=== PATIENT | male | born 1960 | race African-American/Black ===

== ENCOUNTER 2017-06-20 22:57 | Inpatient (IN) | payer MEDICAID, OTHER ==
[~2017-06-20] VITALS: Ht 162.6 cm; Wt 79.4 kg
[2017-06-20 23:47] LABS: HEMATOCRIT. 29.5 % (42.0-52.0); HEMOGLOBIN. 9.5 g/dL (14.0-18.0); MEAN CORPUSCULAR HEMOGLOBIN 24.4 pg (28.0-32.0); MEAN CORPUSCULAR VOLUME 75.5 fL (80.0-94.0); MEAN PLATELET VOLUME 7.7 fl (7.4-10.4); PLATELET 507 x1000/uL (130-400); RED BLOOD CELL COUNT 3.91 mill/uL (4.7-6.1); RED CELL DISTRIBUTION WIDTH 16.3 % (11.6-14.6)
[2017-06-20 23:48] LABS: INR 1.2; PROTHROMBIN TIME 12.1 sec (9.4-11.6)
[2017-06-20 23:56] LABS: CARBON DIOXIDE 26 mEq/L (21-32); CHLORIDE 93 mEq/L (98-107); TROPONIN I < 0.02 ng/mL (0.00-0.04)
[2017-06-21] VITALS (7 sets, daily range): BP systolic 132–173; BP diastolic 85–115
[2017-06-21] MEDS ORDERED: NITROGLYCERIN 0.4MG TABLET SL SL ONE
[2017-06-21] MEDS ORDERED: FUROSEMIDE 40MG/4ML VIAL IVP ONE
[2017-06-21] MEDS ORDERED: ASPIRIN 81MG TABLET PO ONE
[2017-06-21] MEDS ORDERED: CEFTRIAXONE 1 G PREMIX 50 ML IV ONE (01:15)
[2017-06-21] MEDS ORDERED: IBUPROFEN 600MG TABLET PO PRN (01:15)
[2017-06-21] MEDS ORDERED: ACETAMINOPHEN 325MG TABLET PO PRN ×2 (01:15→16:00)
[2017-06-21] MEDS ORDERED: AZITHROMYCIN 500 MG in DEXT 5% WATER 250 ML IV SCH (01:15)
[2017-06-21] MEDS ORDERED: CLONIDINE 0.1MG TABLET PO PRN ×2 (04:45→16:00)
[2017-06-21] MEDS: FUROSEMIDE 40MG/4ML VIAL IVP SCH ×2 (08:27→21:15)
[2017-06-21 08:57] LABS: HEMATOCRIT. 29.5 % (42.0-52.0); HEMOGLOBIN. 9.5 g/dL (14.0-18.0); MEAN CORPUSCULAR HEMOGLOBIN 24.4 pg (28.0-32.0); MEAN CORPUSCULAR VOLUME 75.5 fL (80.0-94.0); MEAN PLATELET VOLUME 7.8 fl (7.4-10.4); PLATELET 516 x1000/uL (130-400); RED BLOOD CELL COUNT 3.91 mill/uL (4.7-6.1); RED CELL DISTRIBUTION WIDTH 16.4 % (11.6-14.6)
[2017-06-21 09:16] LABS: CARBON DIOXIDE 30 mEq/L (21-32); CHLORIDE 93 mEq/L (98-107); TROPONIN I < 0.02 ng/mL (0.00-0.04)
[2017-06-21 10:09] LABS: PLATELET ESTIMATE INCREASED
[2017-06-21] MEDS: POTASSIUM CHLORIDE 20MEQ/PACKET PO SCH (12:20)
[2017-06-21] MEDS ORDERED: DIPHENHYDRAMINE 50MG/ML VIAL IV PRN (16:00)
[2017-06-21] MEDS ORDERED: MAGNESIUM/ALUMINUM HYDROXIDE/SIMETHICONE 30ML UDC PO PRN (16:00)
[2017-06-21] MEDS ORDERED: IPRATROPIUM/ALBUTEROL 0.5-3(2.5)MG/3ML NEB INH PRN (16:00)
[2017-06-21] MEDS ORDERED: ONDANSETRON HCL 4MG/2ML VIAL IV PRN (16:00)
[2017-06-21] MEDS ORDERED: NA PHOS,M-B/NA PHOS,DI-BA ENEMA 118ML PR PRN (16:00)
[2017-06-21] MEDS ORDERED: ACETAMINOPHEN 650MG/20.3ML UDC GT PRN (16:00)
[2017-06-21] MEDS ORDERED: ACETAMINOPHEN 650MG SUPP PR PRN (16:00)
[2017-06-21] MEDS ORDERED: DOCUSATE SODIUM 100MG CAPSULE PO PRN (17:00)
[2017-06-21 17:02] LABS: PLATELET ESTIMATE INCREASED
[2017-06-21 18:54] LABS: CLARITY URINE CLEAR (CLEAR); COLOR URINE YELLOW (YELLOW); GLUCOSE URINE NEGATIVE (NEGATIVE); KETONES URINE NEGATIVE (NEGATIVE); LEUKOCYTE ESTERASE URINE NEGATIVE (NEGATIVE); NITRITE URINE NEGATIVE (NEGATIVE); OCCULT BLOOD URINE NEGATIVE (NEGATIVE); PH URINE 6.5 (4.5-8.0); PROTEIN URINE NEGATIVE (NEGATIVE); SPECIFIC GRAVITY URINE 1.012 (1.005-1.030)
[2017-06-21 19:03] LABS: *AMPHETAMINES SCREEN URINE NEGATIVE (NEGATIVE); *BARBITURATES SCREEN URINE NEGATIVE (NEGATIVE); *BENZODIAZEPINES SCREEN URINE NEGATIVE (NEGATIVE); *COCAINE SCREEN URINE NEGATIVE (NEGATIVE); CANNABINOID URINE SCREEN NEGATIVE (NEGATIVE); METHADONE URINE SCREEN NEGATIVE (NEGATIVE); OPIATES URINE SCREEN NEGATIVE (NEGATIVE); PHENCYCLIDINE URINE SCREEN NEGATIVE (NEGATIVE)
[2017-06-21] MEDS: IPRATROPIUM/ALBUTEROL 0.5-3(2.5)MG/3ML NEB INH SCH (20:49)
[2017-06-21] MEDS: GUAIFENESIN 200MG/10ML SUGAR FREE UDC PO PRN (21:18)
[2017-06-21] MEDS: SODIUM CHLORIDE 0.9% INJ 3ML FLUSH IVF SCH (22:00)
[2017-06-22] VITALS (7 sets, daily range): BP systolic 128–151; BP diastolic 68–101
[2017-06-22] MEDS: IPRATROPIUM/ALBUTEROL 0.5-3(2.5)MG/3ML NEB INH SCH ×4 (01:03→20:09)
[2017-06-22 05:53] LABS: HEMATOCRIT. 29.8 % (42.0-52.0); HEMOGLOBIN. 9.6 g/dL (14.0-18.0); MEAN CORPUSCULAR HEMOGLOBIN 24.3 pg (28.0-32.0); MEAN CORPUSCULAR VOLUME 75.5 fL (80.0-94.0); MEAN PLATELET VOLUME 7.7 fl (7.4-10.4); PLATELET 513 x1000/uL (130-400); RED BLOOD CELL COUNT 3.95 mill/uL (4.7-6.1); RED CELL DISTRIBUTION WIDTH 16.4 % (11.6-14.6)
[2017-06-22 07:24] LABS: CARBON DIOXIDE 31 mEq/L (21-32); CHLORIDE 92 mEq/L (98-107); HDL CHOLESTEROL 34 mg/dL (40-59); LDL CHOLESTEROL 34 mg/dL (5-100)
[2017-06-22] MEDS: POTASSIUM CHLORIDE 20MEQ/PACKET PO SCH (08:30)
[2017-06-22] MEDS: FUROSEMIDE 40MG/4ML VIAL IVP SCH ×2 (08:31→21:50)
[2017-06-22] MEDS: SODIUM CHLORIDE 0.9% INJ 3ML FLUSH IVF SCH ×3 (08:31→21:51)
[2017-06-22] MEDS: LOSARTAN POTASSIUM 50 MG TABLET PO SCH (11:24)
[2017-06-22 11:38] LABS: T4 FREE 1.43 ng/dL (0.76-1.46)
[2017-06-22] MEDS ORDERED: POTASSIUM CHLORIDE 20MEQ/PACKET PO NR (12:00)
[2017-06-22] MEDS ORDERED: POTASSIUM CHLORIDE 20MEQ/PACKET PO SCH (12:00)
[2017-06-22] MEDS: GUAIFENESIN 200MG/10ML SUGAR FREE UDC PO PRN ×2 (14:12→21:51)
[2017-06-22 16:20] LABS: CREATINE KINASE 113 IU/L (39-308); CREATINE KINASE MB FRACTION 1.8 ng/mL (0.5-3.6); TROPONIN I < 0.02 ng/mL (0.00-0.04)
[2017-06-22 19:31] LABS: PLATELET ESTIMATE INCREASED
[2017-06-22] MEDS: CARVEDILOL 3.125 MG TABLET PO SCH (21:50)
[2017-06-22 23:36] LABS: CREATINE KINASE 108 IU/L (39-308); CREATINE KINASE MB FRACTION 1.8 ng/mL (0.5-3.6); TROPONIN I < 0.02 ng/mL (0.00-0.04)
[2017-06-23] VITALS (7 sets, daily range): BP systolic 124–157; BP diastolic 77–99
[2017-06-23] MEDS: IPRATROPIUM/ALBUTEROL 0.5-3(2.5)MG/3ML NEB INH SCH ×4 (00:32→19:48)
[2017-06-23] MEDS: SODIUM CHLORIDE 0.9% INJ 3ML FLUSH IVF SCH ×2 (06:00→16:39)
[2017-06-23] MEDS: CARVEDILOL 3.125 MG TABLET PO SCH (07:43)
[2017-06-23 08:08] LABS: CREATINE KINASE 85 IU/L (39-308); CREATINE KINASE MB FRACTION 1.2 ng/mL (0.5-3.6); TROPONIN I < 0.02 ng/mL (0.00-0.04)
[2017-06-23] MEDS ORDERED: LOSA50TA3 PO (08:18)
[2017-06-23] MEDS ORDERED: FURO-151 PO (08:18)
[2017-06-23] MEDS ORDERED: COR3 PO (08:18)
[2017-06-23] MEDS: POTASSIUM CHLORIDE 20MEQ/PACKET PO SCH (08:21)
[2017-06-23] MEDS: LOSARTAN POTASSIUM 50 MG TABLET PO SCH (08:22)
[2017-06-23] MEDS: FUROSEMIDE 40MG/4ML VIAL IVP SCH (08:22)
[2017-06-23 09:32] LABS: HEMATOCRIT. 30.4 % (42.0-52.0); HEMOGLOBIN. 9.7 g/dL (14.0-18.0); MEAN CORPUSCULAR HEMOGLOBIN 24.5 pg (28.0-32.0); MEAN CORPUSCULAR VOLUME 76.6 fL (80.0-94.0); MEAN PLATELET VOLUME 7.9 fl (7.4-10.4); PLATELET 572 x1000/uL (130-400); RED BLOOD CELL COUNT 3.96 mill/uL (4.7-6.1); RED CELL DISTRIBUTION WIDTH 16.3 % (11.6-14.6)
[2017-06-23 09:52] LABS: CARBON DIOXIDE 33 mEq/L (21-32); CHLORIDE 93 mEq/L (98-107)
[2017-06-23] MEDS ORDERED: REGADENOSON 0.4 MG/5 ML IV NR (13:30)
[2017-06-23 13:40] LABS: PLATELET ESTIMATE INCREASED
== END 2017-06-23 22:30 | disposition home or self-care (01) | DRG 133 ==
LOC: ER 22:57 → 6WST 06-21 01:04 → ENRESERV 06-21 01:16 → 6WST 06-21 05:00
PROVIDERS: ADMIT Family Medicine; ATTEND Family Medicine
DX: J96.00 Acute respiratory failure, unspecified whether with hypoxia or hypercapnia (principal); J81.0 Acute pulmonary edema; I50.43 Acute on chronic combined systolic (congestive) and diastolic (congestive) heart failure; E43 Unspecified severe protein-calorie malnutrition; I11.0 Hypertensive heart disease with heart failure; I42.9 Cardiomyopathy, unspecified; E87.1 Hypo-osmolality and hyponatremia; D63.8 Anemia in other chronic diseases classified elsewhere; E11.65 Type 2 diabetes mellitus with hyperglycemia; E66.9 Obesity, unspecified; I00 Rheumatic fever without heart involvement; F17.200 Nicotine dependence, unspecified, uncomplicated; E78.5 Hyperlipidemia, unspecified; F14.90 Cocaine use, unspecified, uncomplicated; Z59.0 Homelessness; Z85.038 Personal history of other malignant neoplasm of large intestine; Z68.30 Body mass index [BMI] 30.0-30.9, adult; Z87.01 Personal history of pneumonia (recurrent); Z93.3 Colostomy status
CPT/HCPCS: 36415; 71010; 80048; 80053; 80061; 80305; 81003; 82550; 82553; 83036; 83605; 83880; 84439; 84443; 84484; 85025; 85379; 85610; 87040; 93005; 93306; 93970; 94640; 94664; 96365; 96367; 96375; 99291; J0456; J0696; J1940; J2405; J7060; J7620

== ENCOUNTER 2018-04-24 22:18 | Inpatient (IN) | payer MEDICAID ==
[~2018-04-24] VITALS: Ht 180.3 cm; Wt 74.1 kg
[~2018-04-24 22:18] MED LIST: COR3 PO; FURO-151 PO; LOSA50TA3 PO
[2018-04-24 23:32] LABS: HEMATOCRIT. 35.8 % (42.0-52.0); HEMOGLOBIN. 11.7 g/dL (14.0-18.0); MEAN CORPUSCULAR HEMOGLOBIN 29.1 pg (28.0-32.0); MEAN CORPUSCULAR VOLUME 88.8 fL (80.0-94.0); MEAN PLATELET VOLUME 7.3 fl (7.4-10.4); PLATELET 375 x1000/uL (130-400); RED BLOOD CELL COUNT 4.03 mill/uL (4.7-6.1); RED CELL DISTRIBUTION WIDTH 14.2 % (11.6-14.6)
[2018-04-24 23:36] LABS: CHLORIDE 103 mEq/L (98-107)
[2018-04-25] VITALS (9 sets, daily range): BP systolic 142–179; BP diastolic 102–129
[2018-04-25] MEDS ORDERED: NITROGLYCERIN OINT 1GM/INCH UDPKT TD ONE (00:45)
[2018-04-25] MEDS ORDERED: FUROSEMIDE 40MG/4ML VIAL IV ONE (00:45)
[2018-04-25 01:20] LABS: PLATELET ESTIMATE NORMAL
[2018-04-25] MEDS ORDERED: IOHEXOL-350 100 ML BOTTLE ONE (02:54)
[2018-04-25] MEDS ORDERED: CLONIDINE 0.1MG TABLET PO PRN ×3 (04:30→18:45)
[2018-04-25] MEDS: FUROSEMIDE 40MG/4ML VIAL IVP SCH (09:00)
[2018-04-25] MEDS: AMLODIPINE 10MG TABLET PO SCH (09:44)
[2018-04-25] MEDS ORDERED: CLONIDINE 0.2MG TABLET PO PRN (10:45)
[2018-04-25] MEDS ORDERED: PNEUMOCOCCAL 23-VAL P-SAC VAC 0.5 ML IM ONE (12:00)
[2018-04-25] MEDS: LOSARTAN POTASSIUM 25 MG TABLET PO SCH ×2 (15:25→21:04)
[2018-04-25] MEDS: ASPIRIN 81MG EC TABLET PO SCH (15:25)
[2018-04-25] MEDS ORDERED: DIPHENHYDRAMINE 50MG/ML VIAL IV PRN (18:45)
[2018-04-25] MEDS ORDERED: ACETAMINOPHEN 650MG SUPP PR PRN (18:45)
[2018-04-25] MEDS ORDERED: IPRATROPIUM/ALBUTEROL 0.5-3(2.5)MG/3ML NEB INH PRN (18:45)
[2018-04-25] MEDS ORDERED: ACETAMINOPHEN 325MG TABLET PO PRN (18:45)
[2018-04-25] MEDS ORDERED: MAGNESIUM/ALUMINUM HYDROXIDE/SIMETHICONE 30ML UDC PO PRN (18:45)
[2018-04-25] MEDS ORDERED: GUAIFENESIN 200MG/10ML SUGAR FREE UDC PO PRN (18:45)
[2018-04-25] MEDS ORDERED: ACETAMINOPHEN 650MG/20.3ML UDC GT PRN (18:45)
[2018-04-25] MEDS ORDERED: DOCUSATE SODIUM 100MG CAPSULE PO PRN (18:45)
[2018-04-25] MEDS ORDERED: NA PHOS,M-B/NA PHOS,DI-BA ENEMA 118ML PR PRN (19:00)
[2018-04-25] MEDS ORDERED: ONDANSETRON 4MG ODT PO PRN (19:00)
[2018-04-25 20:31] LABS: CHLORIDE 102 mEq/L (98-107); HEMOGLOBIN. 11.6 g/dL (14.0-18.0); MEAN CORPUSCULAR HEMOGLOBIN 28.6 pg (28.0-32.0); MEAN CORPUSCULAR VOLUME 88.8 fL (80.0-94.0); MEAN PLATELET VOLUME 7.6 fl (7.4-10.4); PLATELET 369 x1000/uL (130-400); RED BLOOD CELL COUNT 4.06 mill/uL (4.7-6.1); RED CELL DISTRIBUTION WIDTH 14.3 % (11.6-14.6)
[2018-04-25 20:39] LABS: LDL CHOLESTEROL 49 mg/dL (5-100)
[2018-04-25 20:40] LABS: HDL CHOLESTEROL 38 mg/dL (40-59)
[2018-04-25] MEDS: ENOXAPARIN 40MG/0.4ML SYR SUBCUT SCH (21:05)
[2018-04-25] MEDS: SODIUM CHLORIDE 0.9% INJ 3ML FLUSH IVF SCH (21:08)
[2018-04-25 21:34] LABS: PLATELET ESTIMATE NORMAL
[2018-04-25 23:10] LABS: CLARITY URINE CLEAR (CLEAR); COLOR URINE YELLOW (YELLOW); KETONES URINE NEGATIVE (NEGATIVE); LEUKOCYTE ESTERASE URINE NEGATIVE (NEGATIVE); NITRITE URINE NEGATIVE (NEGATIVE); OCCULT BLOOD URINE NEGATIVE (NEGATIVE); PROTEIN URINE NEGATIVE (NEGATIVE); SPECIFIC GRAVITY URINE 1.007 (1.005-1.030)
[2018-04-25 23:20] LABS: *AMPHETAMINES SCREEN URINE NEGATIVE (NEGATIVE); *BARBITURATES SCREEN URINE NEGATIVE (NEGATIVE)
[2018-04-25 23:21] LABS: *BENZODIAZEPINES SCREEN URINE NEGATIVE (NEGATIVE); *COCAINE SCREEN URINE NEGATIVE (NEGATIVE); METHADONE URINE SCREEN NEGATIVE (NEGATIVE); OPIATES URINE SCREEN NEGATIVE (NEGATIVE); PHENCYCLIDINE URINE SCREEN NEGATIVE (NEGATIVE)
[2018-04-25 23:22] LABS: CANNABINOID URINE SCREEN NEGATIVE (NEGATIVE)
[2018-04-26] VITALS: BP 156/106
[2018-04-26 04:00] VITALS: BP 151/105
[2018-04-26] MEDS: SODIUM CHLORIDE 0.9% INJ 3ML FLUSH IVF SCH ×3 (06:02→21:05)
[2018-04-26 06:26] LABS: HEMATOCRIT. 36.6 % (42.0-52.0); HEMOGLOBIN. 11.8 g/dL (14.0-18.0); MEAN CORPUSCULAR HEMOGLOBIN 28.6 pg (28.0-32.0); MEAN CORPUSCULAR VOLUME 88.1 fL (80.0-94.0); MEAN PLATELET VOLUME 7.7 fl (7.4-10.4); PLATELET 345 x1000/uL (130-400); RED BLOOD CELL COUNT 4.15 mill/uL (4.7-6.1); RED CELL DISTRIBUTION WIDTH 14.4 % (11.6-14.6)
[2018-04-26 06:51] LABS: CHLORIDE 100 mEq/L (98-107)
[2018-04-26 07:03] LABS: CREATINE KINASE 141 IU/L (39-308)
[2018-04-26 07:06] LABS: LDL CHOLESTEROL 50 mg/dL (5-100)
[2018-04-26 07:07] LABS: HDL CHOLESTEROL 37 mg/dL (40-59)
[2018-04-26 07:17] LABS: CREATINE KINASE MB FRACTION 1.9 ng/mL (0.5-3.6)
[2018-04-26 08:00] VITALS: BP 150/98
[2018-04-26] MEDS: ASPIRIN 81MG EC TABLET PO SCH (08:48)
[2018-04-26] MEDS: AMLODIPINE 10MG TABLET PO SCH (08:48)
[2018-04-26] MEDS: FUROSEMIDE 40MG/4ML VIAL IVP SCH (08:49)
[2018-04-26] MEDS: LOSARTAN POTASSIUM 25 MG TABLET PO SCH (08:50)
[2018-04-26 10:43] LABS: PLATELET ESTIMATE NORMAL
[2018-04-26] MEDS ORDERED: AMLO10TA80 PO (12:10)
[2018-04-26] MEDS ORDERED: ASPI-1158 PO (12:10)
[2018-04-26 12:30] VITALS: BP 158/102
[2018-04-26] MEDS: HYDRALAZINE HCL 25MG TABLET PO SCH ×2 (14:07→21:03)
[2018-04-26 16:14] VITALS: BP 144/96
[2018-04-26 20:00] VITALS: BP 146/103
[2018-04-26] MEDS: ENOXAPARIN 40MG/0.4ML SYR SUBCUT SCH (20:00)
[2018-04-26] MEDS: LOSARTAN POTASSIUM 50 MG TABLET PO SCH (21:03)
[2018-04-27] VITALS: BP 154/100
[2018-04-27 04:00] VITALS: BP 160/119
[2018-04-27] MEDS: HYDRALAZINE HCL 25MG TABLET PO SCH (06:13)
[2018-04-27] MEDS: SODIUM CHLORIDE 0.9% INJ 3ML FLUSH IVF SCH (06:14)
[2018-04-27 07:50] LABS: CHLORIDE 102 mEq/L (98-107)
[2018-04-27 08:00] VITALS: BP 148/98
[2018-04-27 08:02] LABS: HEMATOCRIT. 37.9 % (42.0-52.0); HEMOGLOBIN. 12.4 g/dL (14.0-18.0); MEAN CORPUSCULAR HEMOGLOBIN 28.9 pg (28.0-32.0); MEAN CORPUSCULAR VOLUME 88.7 fL (80.0-94.0); MEAN PLATELET VOLUME 7.8 fl (7.4-10.4); PLATELET 381 x1000/uL (130-400); RED BLOOD CELL COUNT 4.27 mill/uL (4.7-6.1); RED CELL DISTRIBUTION WIDTH 14.1 % (11.6-14.6)
[2018-04-27] MEDS: FUROSEMIDE 40MG/4ML VIAL IVP SCH (08:47)
[2018-04-27] MEDS: AMLODIPINE 10MG TABLET PO SCH (08:48)
[2018-04-27] MEDS: ASPIRIN 81MG EC TABLET PO SCH (08:48)
[2018-04-27] MEDS: LOSARTAN POTASSIUM 50 MG TABLET PO SCH (09:00)
[2018-04-27] MEDS ORDERED: CLONIDINE 0.1MG TABLET PO SCH (11:30)
[2018-04-27 12:00] VITALS: BP 138/89
[2018-04-27 12:35] VITALS: BP 146/92
[2018-04-27] MEDS ORDERED: HYDRALAZINE HCL 100MG TABLET PO SCH (14:00)
[2018-04-27 16:38] LABS: PLATELET ESTIMATE NORMAL
== END 2018-04-27 14:20 | disposition home or self-care (01) | DRG 194 ==
LOC: ER 22:26 → 6WST 04-25 01:28 → EDBEDREQTM 04-25 01:29 → EDBEDREQ 04-25 01:29 → ENRESERV 04-25 01:49
PROVIDERS: ADMIT Family Medicine; ATTEND Family Medicine
DX: I11.0 Hypertensive heart disease with heart failure (principal); J96.90 Respiratory failure, unspecified, unspecified whether with hypoxia or hypercapnia; E43 Unspecified severe protein-calorie malnutrition; J44.1 Chronic obstructive pulmonary disease with (acute) exacerbation; E11.9 Type 2 diabetes mellitus without complications; I42.0 Dilated cardiomyopathy; D63.8 Anemia in other chronic diseases classified elsewhere; I00 Rheumatic fever without heart involvement; I50.43 Acute on chronic combined systolic (congestive) and diastolic (congestive) heart failure; E78.00 Pure hypercholesterolemia, unspecified; E78.5 Hyperlipidemia, unspecified; Z59.0 Homelessness; Z79.899 Other long term (current) drug therapy
CPT/HCPCS: 36415; 71045; 71275; 80048; 80053; 80061; 80305; 81003; 82550; 82553; 83036; 83735; 83880; 84443; 84484; 85025; 85379; 90732; 93005; 93306; 93970; 99285; J1650; J1940; Q9967

== ENCOUNTER 2018-10-20 14:18 | Emergency (ER) | payer MEDICAID ==
[~2018-10-20] VITALS: Ht 180.3 cm; Wt 75.0 kg
[~2018-10-20 14:18] MED LIST changes: +AMLO10TA80 PO; +ASPI-1158 PO
[2018-10-20] MEDS ORDERED: AMLODIPINE 10MG TABLET PO ONE (23:00)
[2018-10-20] MEDS ORDERED: FUROSEMIDE 40MG TABLET PO ONE (23:00)
[2018-10-20] MEDS ORDERED: CARVEDILOL 3.125 MG TABLET PO ONE (23:00)
[2018-10-20] MEDS: LOSARTAN POTASSIUM 50 MG TABLET PO SCH (23:04)
[2018-10-21 00:06] LABS: EOSINOPHILS % 2.8 % (0.0-5.0); HEMATOCRIT. 35.6 % (42.0-52.0); HEMOGLOBIN. 11.6 g/dL (14.0-18.0); LYMPHOCYTES % 29.9 % (20.0-50.0); MEAN CORPUSCULAR HEMOGLOBIN 29.1 pg (28.0-32.0); MEAN CORPUSCULAR VOLUME 89.3 fL (80.0-94.0); MONOCYTES % 11.4 % (2.0-8.0); NEUTROPHILS % 54.9 % (40.0-76.0); PLATELET 286 x1000/uL (130-400); RED BLOOD CELL COUNT 3.99 mill/uL (4.7-6.1); RED CELL DISTRIBUTION WIDTH 13.8 % (11.6-14.6)
[2018-10-21 00:11] LABS: CHLORIDE 104 mEq/L (98-107)
[2018-10-21 00:20] LABS: ETHANOL BLOOD < 10 mg/dL
[2018-10-21] MEDS: LOSARTAN POTASSIUM 50 MG TABLET PO SCH (09:43)
[2018-10-21 12:06] LABS: *AMPHETAMINES SCREEN URINE NEGATIVE (NEGATIVE); *BARBITURATES SCREEN URINE NEGATIVE (NEGATIVE); *BENZODIAZEPINES SCREEN URINE NEGATIVE (NEGATIVE)
[2018-10-21 12:07] LABS: *COCAINE SCREEN URINE NEGATIVE (NEGATIVE); CANNABINOID URINE SCREEN NEGATIVE (NEGATIVE); METHADONE URINE SCREEN NEGATIVE (NEGATIVE); OPIATES URINE SCREEN NEGATIVE (NEGATIVE); PHENCYCLIDINE URINE SCREEN NEGATIVE (NEGATIVE)
[2018-10-21 13:03] VITALS: BP 150/93
== END 2018-10-21 13:09 | disposition home or self-care (01) ==
LOC: ER 14:18
DX: I11.0 Hypertensive heart disease with heart failure (principal); I50.9 Heart failure, unspecified; J44.9 Chronic obstructive pulmonary disease, unspecified; Z59.0 Homelessness; Z91.14 Patient's other noncompliance with medication regimen; Z79.82 Long term (current) use of aspirin
CPT/HCPCS: 36415; 80053; 80305; 83880; 85025; 99284; G0482

== ENCOUNTER 2019-02-13 12:38 | Emergency (ER) | payer MEDICAID ==
[~2019-02-13] VITALS: Ht 177.8 cm; Wt 75.0 kg
[2019-02-13 16:16] LABS: *AMPHETAMINES SCREEN URINE NEGATIVE (NEGATIVE); *BARBITURATES SCREEN URINE NEGATIVE (NEGATIVE); *BENZODIAZEPINES SCREEN URINE NEGATIVE (NEGATIVE); *COCAINE SCREEN URINE NEGATIVE (NEGATIVE); METHADONE URINE SCREEN NEGATIVE (NEGATIVE); OPIATES URINE SCREEN NEGATIVE (NEGATIVE)
[2019-02-13 16:17] LABS: CANNABINOID URINE SCREEN NEGATIVE (NEGATIVE); PHENCYCLIDINE URINE SCREEN NEGATIVE (NEGATIVE)
[2019-02-13 16:19] LABS: HEMATOCRIT. 37.9 % (42.0-52.0); HEMOGLOBIN. 12.4 g/dL (14.0-18.0); MEAN CORPUSCULAR HEMOGLOBIN 29.5 pg (28.0-32.0); MEAN CORPUSCULAR VOLUME 90.4 fL (80.0-94.0); MEAN PLATELET VOLUME 8.2 fl (7.4-10.4); PLATELET 244 x1000/uL (130-400); RED BLOOD CELL COUNT 4.19 mill/uL (4.7-6.1); RED CELL DISTRIBUTION WIDTH 13.2 % (11.6-14.6)
[2019-02-13 16:25] LABS: CHLORIDE 104 mEq/L (98-107)
[2019-02-13 16:29] LABS: ETHANOL BLOOD < 10 mg/dL
[2019-02-13 17:09] LABS: PLATELET ESTIMATE NORMAL
[2019-02-13 18:10] VITALS: BP 175/82
== END 2019-02-13 18:20 | disposition home or self-care (01) ==
LOC: ER 12:38
DX: F22 Delusional disorders (principal); I11.0 Hypertensive heart disease with heart failure; I50.9 Heart failure, unspecified; J44.9 Chronic obstructive pulmonary disease, unspecified; Z98.890 Other specified postprocedural states; Z79.82 Long term (current) use of aspirin; Z79.899 Other long term (current) drug therapy
CPT/HCPCS: 36415; 80305; 80320; 83605; 99283; G0480

== ENCOUNTER 2023-12-01 11:24 | Inpatient (IN) | payer MEDICAID, OTHER ==
[~2023-12-01] VITALS: Ht 180.3 cm; Wt 79.6 kg
[~2023-12-01 11:24] MED LIST changes: -ASPI-1158 PO; +ASPI-1406 PO; +LOSA-412 PO; -LOSA50TA3 PO
[2023-12-01 12:35] LABS: HEMATOCRIT. 31.2 % (42.0-52.0); HEMOGLOBIN. 9.8 g/dL (14.0-18.0); MEAN CORPUSCULAR HEMOGLOBIN 28.3 pg (28.0-32.0); MEAN CORPUSCULAR HGB CONC 31.5 g/dL (31.0-37.0); MEAN PLATELET VOLUME 7.9 fl (7.4-10.4); PLATELET 241 x1000/uL (130-400); RED BLOOD CELL COUNT 3.47 mill/uL (4.7-6.1); RED CELL DISTRIBUTION WIDTH 18.5 % (11.6-14.6)
[2023-12-01 12:53] LABS: ALANINE AMINOTRANSFERASE 22 IU/L (10-49); ALBUMIN 3.9 g/dL (3.2-4.8); AMMONIA 91 uMol/L (<32); ASPARTATE AMINOTRANSFERASE 45 IU/L (<34); BILIRUBIN TOTAL 2.1 mg/dL (0.1-1.0); CARBON DIOXIDE 23 mEq/L (21-32); CHLORIDE 108 mEq/L (98-107); CREATINE KINASE 77 IU/L (46-171); GLUCOSE 99 mg/dL (70-105); POTASSIUM 4.8 mEq/L (3.5-5.1); PROTEIN TOTAL 8.6 g/dL (6.0-8.3); SODIUM 137 mEq/L (136-145); TROPONIN I HIGH SENSITIVITY 14 ng/L (3.0-53); UREA NITROGEN BLOOD 18 mg/dL (9-23)
[2023-12-01 12:54] LABS: DIFFERENTIAL COMMENT 1
[2023-12-01 13:29] LABS: ETHANOL BLOOD < 10 mg/dL (<10); PLATELET ESTIMATE NORMAL
[2023-12-01] MEDS ORDERED: AMLODIPINE 10MG TABLET PO ONE (14:00)
[2023-12-01] MEDS: AMLODIPINE 5MG TABLET PO NR (14:38)
[2023-12-01] MEDS: LACTULOSE 20G/30ML UDC PO NR (21:54)
[2023-12-01] MEDS ORDERED: ONDANSETRON HCL 4MG/2ML INJ IV PRN (23:15)
[2023-12-01] MEDS ORDERED: CLONIDINE 0.1MG TABLET PO PRN (23:15)
[2023-12-01] MEDS ORDERED: IPRATROPIUM/ALBUTEROL 0.5-3(2.5)MG/3ML NEB HHN PRN (23:15)
[2023-12-01] MEDS ORDERED: MAGNESIUM/ALUMINUM HYDROXIDE/SIMETHICONE 30ML UDC PO PRN (23:15)
[2023-12-01] MEDS ORDERED: ACETAMINOPHEN 325MG TABLET PO PRN (23:15)
[2023-12-02] MEDS: ACETAMINOPHEN 325MG TABLET PO PRN (02:27)
[2023-12-02 04:00] VITALS: BP 157/105; PULSE 66; RESP 20; TEMP 97.1
[2023-12-02] MEDS ORDERED: FAMO20TA8 PO (04:39)
[2023-12-02] MEDS ORDERED: THIA100T88 PO (04:39)
[2023-12-02] MEDS ORDERED: FERR-71 PO (04:39)
[2023-12-02] MEDS ORDERED: LEVE500T19 PO (04:39)
[2023-12-02] MEDS: SODIUM CHLORIDE 0.9% INJ 3ML FLUSH IVF SCH (05:07)
[2023-12-02] MEDS: LACTULOSE 20G/30ML UDC PO SCH (05:07)
[2023-12-02 08:00] VITALS: BP 147/104; PULSE 113; RESP 18; TEMP 97.1
[2023-12-02] MEDS: RIFAXIMIN 550 MG TABLET PO SCH (09:00)
[2023-12-02] MEDS: THIAMINE HCL 100MG TABLET PO SCH (09:49)
[2023-12-02] MEDS: METOPROLOL TARTRATE 50MG TABLET PO SCH (09:49)
[2023-12-02] MEDS: AMIODARONE HCL 200 MG TABLET PO SCH (09:49)
[2023-12-02] MEDS: APIXABAN 5 MG TABLET PO SCH (09:49)
[2023-12-02] MEDS: FUROSEMIDE 20MG TABLET PO SCH (09:49)
[2023-12-02] MEDS: LEVETIRACETAM 500MG TABLET PO SCH (09:49)
[2023-12-02] MEDS: FAMOTIDINE 20MG TABLET PO SCH (09:49)
[2023-12-02 12:00] VITALS: BP 137/102; PULSE 113; RESP 18; TEMP 97.3
[2023-12-02 12:13] LABS: AMMONIA 41 uMol/L (<32)
[2023-12-02 15:25] LABS: CLARITY URINE CLOUDY (CLEAR); COLOR URINE DARK YELLOW (YELLOW); GLUCOSE URINE NEGATIVE (NEGATIVE); KETONES URINE TRACE (NEGATIVE); LEUKOCYTE ESTERASE URINE 1+ (NEGATIVE); NITRITE URINE NEGATIVE (NEGATIVE); OCCULT BLOOD URINE TRACE (NEGATIVE); PROTEIN URINE 2+ (NEGATIVE); SPECIFIC GRAVITY URINE 1.018 (1.005-1.030)
[2023-12-02 15:35] LABS: BACTERIA URINE 2+; RBC URINE 0-2 /hpf (0-2); SQUAMOUS EPITHELIAL CELL URINE 1+ /lpf (RARE/1+)
[2023-12-02 15:37] LABS: *AMPHETAMINES SCREEN URINE NEGATIVE (NEGATIVE); *BARBITURATES SCREEN URINE NEGATIVE (NEGATIVE); *BENZODIAZEPINES SCREEN URINE NEGATIVE (NEGATIVE); *COCAINE SCREEN URINE NEGATIVE (NEGATIVE); CANNABINOID URINE SCREEN NEGATIVE (NEGATIVE); ECSTASY MDMA SCREEN URINE NEGATIVE (NEGATIVE); METHADONE URINE SCREEN Neg (NEGATIVE); OPIATES URINE SCREEN NEGATIVE (NEGATIVE); PHENCYCLIDINE URINE SCREEN NEGATIVE (NEGATIVE)
[2023-12-02] MEDS ORDERED: AMIO100T4 PO (15:46)
[2023-12-02] MEDS ORDERED: METO-539 PO (15:46)
[2023-12-02] MEDS ORDERED: NEPVIT PO (15:46)
[2023-12-02] MEDS ORDERED: SACU1TAB7 PO (15:46)
[2023-12-02] MEDS ORDERED: RIFA550T PO (15:46)
[2023-12-02] MEDS ORDERED: APIX5TAB PO (15:46)
[2023-12-02 16:00] VITALS: BP 144/102; PULSE 113; RESP 18; TEMP 97.7
[2023-12-02 20:00] VITALS: BP 142/99; PULSE 70; RESP 20; TEMP 97.9
[2023-12-02] MEDS: DIPHENHYDRAMINE 50MG/ML VIAL IV PRN (23:42)
[2023-12-03] VITALS: BP 135/94; PULSE 65; RESP 18; TEMP 97.4
[2023-12-03 04:00] VITALS: BP 146/106; PULSE 78; RESP 20; TEMP 97.6
[2023-12-03 08:03] VITALS: BP 137/97; PULSE 67; RESP 20; TEMP 97.9
[2023-12-03 12:05] VITALS: BP 136/85; PULSE 69; RESP 20; TEMP 97.7
[2023-12-03 15:54] VITALS: BP 127/84; PULSE 61; RESP 22; TEMP 97.7
[2023-12-03 19:19] LABS: AMMONIA 140 uMol/L (<32)
[2023-12-03 20:00] VITALS: BP 146/94; PULSE 66; RESP 20; TEMP 97.4
[2023-12-04] VITALS: BP 151/102; PULSE 65; RESP 20; TEMP 97.3
[2023-12-04 04:00] VITALS: BP 133/94; PULSE 85; RESP 20; TEMP 97.5
[2023-12-04 06:38] LABS: HEMATOCRIT. 27.9 % (42.0-52.0); HEMOGLOBIN. 8.9 g/dL (14.0-18.0); MEAN CORPUSCULAR HEMOGLOBIN 27.8 pg (28.0-32.0); MEAN CORPUSCULAR HGB CONC 31.8 g/dL (31.0-37.0); MEAN CORPUSCULAR VOLUME 87.7 fL (80.0-94.0); MEAN PLATELET VOLUME 7.7 fl (7.4-10.4); PLATELET 235 x1000/uL (130-400); RED BLOOD CELL COUNT 3.19 mill/uL (4.7-6.1); WHITE BLOOD COUNT 3.8 x1000/uL (4.5-11.0)
[2023-12-04 06:51] LABS: CALCIUM 9.3 mg/dL (8.7-10.4); CARBON DIOXIDE 24 mEq/L (21-32); CHLORIDE 107 mEq/L (98-107); CREATININE 1.2 mg/dL (0.6-1.3); GLUCOSE 85 mg/dL (70-105); POTASSIUM 3.5 mEq/L (3.5-5.1); SODIUM 140 mEq/L (136-145); UREA NITROGEN BLOOD 19 mg/dL (9-23)
[2023-12-04 07:54] LABS: DIFFERENTIAL COMMENT 1
[2023-12-04 07:57] VITALS: BP 147/111; PULSE 70; RESP 18; TEMP 98.1
[2023-12-04 08:24] LABS: AMMONIA 134 uMol/L (<32)
[2023-12-04] MEDS: LACTULOSE 20G/30ML UDC PO SCH (10:36)
[2023-12-04 12:02] VITALS: BP 141/103; PULSE 62; RESP 16; TEMP 97.8
[2023-12-04] MEDS: MAGNESIUM 4 G PREMIX 100 ML IV NR (12:20)
[2023-12-04 15:15] VITALS: BP 132/103; PULSE 70; RESP 16; TEMP 98
[2023-12-04 20:12] VITALS: BP 151/101; PULSE 70; RESP 19; TEMP 97.1
[2023-12-04 21:03] LABS: PLATELET ESTIMATE NORMAL
[2023-12-04 21:04] LABS: ANISOCYTOSIS 1+
[2023-12-05] VITALS (7 sets, daily range): BP systolic 127–149; BP diastolic 91–114; PULSE 56–79; RESP 16–20; TEMP 97–98.2
[2023-12-06] VITALS: BP 147/102; PULSE 62; RESP 19; TEMP 96.7
[2023-12-06 04:20] VITALS: BP 147/93; PULSE 62; RESP 20; TEMP 97
[2023-12-06 06:38] LABS: HEMATOCRIT. 30.1 % (42.0-52.0); HEMOGLOBIN. 9.6 g/dL (14.0-18.0); MEAN CORPUSCULAR VOLUME 87.5 fL (80.0-94.0); MEAN PLATELET VOLUME 8.2 fl (7.4-10.4); PLATELET 246 x1000/uL (130-400); RED BLOOD CELL COUNT 3.44 mill/uL (4.7-6.1); RED CELL DISTRIBUTION WIDTH 17.6 % (11.6-14.6); WHITE BLOOD COUNT 3.8 x1000/uL (4.5-11.0)
[2023-12-06 06:39] LABS: AMMONIA 148 uMol/L (<32)
[2023-12-06 06:52] LABS: CARBON DIOXIDE 25 mEq/L (21-32); CHLORIDE 102 mEq/L (98-107); CREATININE 1.1 mg/dL (0.6-1.3); GLUCOSE 126 mg/dL (70-105); PHOSPHORUS 2.6 mg/dL (2.5-4.9); POTASSIUM 3.7 mEq/L (3.5-5.1); SODIUM 135 mEq/L (136-145); UREA NITROGEN BLOOD 20 mg/dL (9-23)
[2023-12-06 06:56] LABS: DIFFERENTIAL COMMENT 1
[2023-12-06 08:00] VITALS: BP 140/99; PULSE 62; RESP 18; TEMP 97.2
[2023-12-06] MEDS: MAGNESIUM 4 G PREMIX 100 ML IV SCH (11:25)
[2023-12-06 12:00] VITALS: BP 168/99; PULSE 52; RESP 18; TEMP 98
[2023-12-06 13:31] LABS: ANISOCYTOSIS 1+; PLATELET ESTIMATE NORMAL
[2023-12-06 16:00] VITALS: BP 144/80; PULSE 63; RESP 18; TEMP 97.9
[2023-12-06 20:00] VITALS: BP 130/89; PULSE 70; RESP 19; TEMP 96.6
[2023-12-07] VITALS: BP 129/99; PULSE 68; RESP 20; TEMP 95.7
[2023-12-07 04:00] VITALS: BP 138/90; PULSE 60; RESP 20; TEMP 96.2
[2023-12-07 08:00] VITALS: BP 129/94; PULSE 56; RESP 18; TEMP 97.9
[2023-12-07 12:00] VITALS: BP 157/88; PULSE 66; RESP 18; TEMP 98.9
[2023-12-07] MEDS: RIFAXIMIN 550 MG TABLET PO SCH (12:31)
[2023-12-07 16:00] VITALS: BP 132/94; PULSE 64; RESP 18; TEMP 97.9
[2023-12-07 20:00] VITALS: BP 133/88; PULSE 61; RESP 14; TEMP 96.1
[2023-12-08] VITALS: BP 146/86; PULSE 60; RESP 16; TEMP 96.9
[2023-12-08 04:00] VITALS: BP 134/89; PULSE 72; RESP 16; TEMP 97.1
[2023-12-08 08:00] VITALS: BP 137/99; PULSE 78; RESP 18; TEMP 98.3
[2023-12-08 12:00] VITALS: BP 128/98; PULSE 69; RESP 23; TEMP 97
[2023-12-08 12:46] LABS: CALCIUM 8.7 mg/dL (8.7-10.4); CARBON DIOXIDE 29 mEq/L (21-32); CHLORIDE 101 mEq/L (98-107); CREATININE 1.2 mg/dL (0.6-1.3); GLUCOSE 100 mg/dL (70-105); SODIUM 133 mEq/L (136-145); UREA NITROGEN BLOOD 15 mg/dL (9-23)
[2023-12-08 16:00] VITALS: BP 143/100; PULSE 108; RESP 21; TEMP 97.9
[2023-12-08] MEDS: MAGNESIUM 4 G PREMIX 100 ML IV NR (18:04)
[2023-12-08 20:00] VITALS: BP 128/86; PULSE 61; RESP 17; TEMP 98.1
[2023-12-09] VITALS: BP 136/91; PULSE 87; RESP 20; TEMP 98.3
[2023-12-09 04:00] VITALS: BP 157/75; PULSE 65; RESP 19; TEMP 97.5
[2023-12-09 08:00] VITALS: BP 116/65; PULSE 59; RESP 20; TEMP 96.5
[2023-12-09 12:00] VITALS: BP 132/90; PULSE 70; RESP 20; TEMP 96.6
[2023-12-09 16:00] VITALS: BP 131/90; PULSE 65; RESP 20; TEMP 97.5
[2023-12-09 20:00] VITALS: BP 134/71; PULSE 71; RESP 20; TEMP 98
[2023-12-10] VITALS (8 sets, daily range): BP systolic 135–165; BP diastolic 62–103; PULSE 55–66; RESP 17–19; TEMP 96.6–99.3; O2SAT 98
[2023-12-10] MEDS: LACTULOSE 20G/30ML UDC PO SCH (15:52)
== END 2023-12-10 22:27 ==
LOC: ER 11:24 → CANBEDREQ 15:44 → 7WST 17:40 → EDBEDREQSVC 12-02 00:26 → 6EST 12-07 16:52
PROVIDERS: ADMIT Internal Medicine; ATTEND Internal Medicine
DX: K76.82 Hepatic encephalopathy (principal); I11.0 Hypertensive heart disease with heart failure; I50.22 Chronic systolic (congestive) heart failure; R62.7 Adult failure to thrive; K74.60 Unspecified cirrhosis of liver; Z68.24 Body mass index [BMI] 24.0-24.9, adult; E83.42 Hypomagnesemia; G40.909 Epilepsy, unspecified, not intractable, without status epilepticus; J44.9 Chronic obstructive pulmonary disease, unspecified
CPT/HCPCS: 36415; 71045; 74176; 76700; 76705; 80048; 80053; 80305; 80320; 81003; 82140; 82550; 82962; 83735; 84100; 84443; 84484; 85025; 93005; 93306; 93970; 97162; 97166; 97535; 99285; J1200; J3475; G0480